=== PATIENT | female | born 1980 | race African-American/Black ===

== ENCOUNTER 2023-06-04 11:36 | Emergency (ER) | payer BC, OTHER ==
[~2023-06-04] VITALS: Ht 149.9 cm; Wt 52.2 kg
[2023-06-04 11:54] VITALS: BP 114/64; TEMP 98.7; O2SAT 100
[2023-06-04] MEDS ORDERED: IBUP-1955 PO (12:21)
== END 2023-06-04 15:01 | disposition home or self-care (01) ==
LOC: ER 11:45
DX: S63.592A Other specified sprain of left wrist, initial encounter (principal); Z79.899 Other long term (current) drug therapy; X50.1XXA Overexertion from prolonged static or awkward postures, initial encounter; Y93.89 Activity, other specified; Y92.89 Other specified places as the place of occurrence of the external cause; Y99.8 Other external cause status
CPT/HCPCS: 73110; 73130-TC